=== PATIENT | male | born 1990 | race Caucasian/White ===

== ENCOUNTER 2023-06-05 18:07 | Emergency (ER) | payer OTHER ==
[~2023-06-05] VITALS: Ht 180.3 cm; Wt 70.0 kg
[2023-06-05 18:16] VITALS: BP 117/77; PULSE 84; RESP 16; O2SAT 97
[2023-06-05] MEDS ORDERED: LIDOCAINE VISCOUS 2% 15ML UD MT ONE (19:15)
[2023-06-05] MEDS ORDERED: MAALOX PLUS or MAALOX 30 ML PO ONE (19:15)
[2023-06-05 19:48] LABS: Basophils # (auto) 0.1 10 ^3/uL (0-0.2); Basophils % (auto) 1.5 % (0.0-2.0); Eosinophils # (auto) 0.1 10 ^3/uL (0-0.8); Eosinophils % (auto) 1.3 % (0.0-7.0); Hematocrit 43.6 % (41.0-53.0); Hemoglobin 14.7 g/dL (13.5-17.5); Lymphocytes # (auto) 1.8 10 ^3/uL (0.4-5.4); Lymphocytes % (auto) 22.5 % (10.0-50.0); Mean Corpuscular Hemoglobin 30.3 pg (28.0-32.0); Mean Corpuscular Hgb Conc. 33.7 g/dL (32.0-36.0); Mean Corpuscular Volume 90.1 fL (80.0-100.0); Monocytes # (auto) 0.6 10 ^3/uL (0-1.3); Monocytes % (auto) 7.8 % (0.0-12.0); Neutrophils # (auto) 5.5 10 ^3/uL (1.6-8.6); Neutrophils % (auto) 66.9 % (37.0-80.0); Nucleated Red Blood Cells % 0.1 %; Red Blood Cells 4.84 10^6/uL (4.5-5.90); White Blood Cell 8.2 10^3/uL (4.4-10.8)
[2023-06-05 20:02] LABS: Chloride 106 mmol/L (98-107); Sodium 137 mmol/L (136-145)
[2023-06-05 20:03] LABS: Anion Gap 4 (5-15); Calcium 9.2 mg/dL (8.7-10.4); Carbon Dioxide 27 mmol/L (20-30)
[2023-06-05 20:08] LABS: BUN/Creatinine Ratio 14.1 (10.0-20.0); Blood Urea Nitrogen 12 mg/dL (9-23); Glucose 157 mg/dL (74-106); Lipase 39 U/L (12-53)
[2023-06-05] MEDS ORDERED: DICY10CA PO (23:42)
== END 2023-06-06 00:12 | disposition left against medical advice (07) ==
LOC: ER 18:07
DX: K29.00 Acute gastritis without bleeding (principal); F15.90 Other stimulant use, unspecified, uncomplicated; Z79.899 Other long term (current) drug therapy
CPT/HCPCS: 36415; 80048; 83690; 85025